=== PATIENT | male | born 1995 | race African-American/Black ===

== ENCOUNTER 2017-07-07 20:47 | Emergency (ER) | payer BC, OTHER ==
[2017-07-07 21:07] VITALS: BP 120/65
[2017-07-07] MEDS ORDERED: Lidocaine 1% INJ* 10 MG/ML 30 ML SDV INJ ONE (21:49)
[2017-07-07] MEDS ORDERED: Lidocaine 1% MPF* 2 ML VIAL INJ ONE (22:03)
[2017-07-07] MEDS ORDERED: Lidocaine 1% MPF* 2 ML VIAL ONE (22:05)
[2017-07-07] MEDS ORDERED: Bacitracin OINTMENT* 0.5% 0.5 oz TUBE TOPICAL ONE (22:55)
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
== END 2017-07-07 23:13 | disposition home or self-care (01) ==
LOC: UCEAST 20:47
DX: S01.112A Laceration without foreign body of left eyelid and periocular area, initial encounter (principal); W50.0XXA Accidental hit or strike by another person, initial encounter; Y93.72 Activity, wrestling; Y92.39 Other specified sports and athletic area as the place of occurrence of the external cause
CPT/HCPCS: 12001; 12011; 99201; A9270-GY; G0463

== ENCOUNTER 2017-09-29 11:27 | Emergency (ER) | payer BC, OTHER ==
[2017-09-29 11:37] VITALS: BP 141/79
--- NOTE | 2017-09-29 12:56 | UC ---
Abdominal Pain Male HPI - HPI Summary HPI Summary: 21 y/o male with no PMH, no medications ate chicken ques at 2AM thursday AM, work at 4 with abdominal pains, vomited 30 minutes later, next day + watery diarrhea , mild fever - 100.3 max N/V improved thursday with more formed stools, ate fruit this AM- increased abdominal pain, + watery diarrhea again. + mild dizziness, no syncope. no heart racing. - History of Current Complaint Chief Complaint: UCAbdominalPain Stated Complaint: ABD PAIN Time Seen by Provider: 09/29/17 12:29 Hx Obtained From: Patient, Family/Candle [employer] - girlfriend Onset/Duration: Sudden Onset, Lasting Days Severity Initially: Moderate Severity Currently: Moderate Pain Intensity: 7 Pain Scale Used: 0-10 Numeric - Allergies/Home Medications Allergies/Adverse Reactions: Allergies Allergy/AdvReac Type Severity Reaction Status Date / Time No Known Allergies Allergy Verified 09/29/17 11:37 PMH/Surg Hx/FS Hx/Imm Hx Previously Healthy: Yes - Surgical History Surgical History: None - Family History Known Family History: Positive: None - reviewed noncontributory - Social History Alcohol Use: None Substance Use Type: None Smoking Status (MU): Never Smoked Tobacco - Immunization History Most Recent Tetanus Shot: UNKNOWN Review of Systems Constitutional: Fever, Fatigue Gastrointestinal: Abdominal Pain, Vomiting - resolved, Diarrhea Motor: Weakness Neurological: Headache Is Patient Immunocompromised?: No All Other Systems Reviewed And Are Negative: Yes Physical Exam Triage Information Reviewed: Yes Appearance: Well-Appearing, No Pain Distress, Well-Nourished Vital Signs: Initial Vital Signs Temp 97.9 F 09/29/17 11:33 Pulse 58 09/29/17 11:33 Resp 18 09/29/17 11:33 BP 141/79 09/29/17 11:33 Pulse Ox 100 09/29/17 11:33 Eyes: Positive: Conjunctiva Clear Respiratory: Positive: Chest non-tender, Lungs clear, Normal breath sounds, No respiratory distress, No accessory muscle use Cardiovascular: Positive: RRR, No Murmur Abdomen Description: Positive: No Organomegaly, Soft, Bruit, Other: - mild tenderness with deep palpation over epistric region and L/R lower quadrants. hyperactive bowel sounds throughout. no gaurding, rebound, distension. Negative: CVA Tenderness (R), CVA Tenderness (L) Neurological Exam: Normal Psychological Exam: Normal Abd Pain Male Course/Dx - Course Course Of Treatment: likley gastroenteritis from food poisioning, possible e. coli. conservatrive treatment measures, antinausea mentication, carafate, increase fluids, BRAT/ CLD diet followed by simple carbs. patient voiced full understanding school note given. - Differential Dx/Clinical Impression Provider Diagnoses: gastroenteritis Discharge - Sign-Out/Discharge Documenting (check all that apply): Discharge/Admit/Transfer - Discharge Plan Condition: Good Disposition: HOME Prescriptions: Ondansetron [Zofran Odt] 4 mg PO Q8H PRN #20 tab.rapdis PRN Reason: nausea. vomiting Sucralfate TAB* [Carafate*] 1 gm PO BID PRN #20 tab PRN Reason: stomach pain, nausea Patient Education Materials: Gastroenteritis (DC), Food Poisoning (ED) Forms: *School Release Referrals: [facility] - Alonso PRESLEY [Primary Care Provider] - Additional Instructions: - zofran as needed every 8 hours for nausea - carafate as needed every 6 hours for stomach pain, indigestion - Increase fluid intake as much as possible - Return to ER with shortness of breath, worsening dizziness/ lightheadedness, blood in stool or dark, tarry stools/ > 10 stools a day - Billing Disposition and Condition Condition: GOOD Disposition: HOME
== END 2017-09-29 13:05 | disposition home or self-care (01) ==
LOC: UCEAST 11:27
DX: K52.9 Noninfective gastroenteritis and colitis, unspecified (principal); R50.9 Fever, unspecified; R53.83 Other fatigue; R51 Headache
CPT/HCPCS: 99212; G0463